=== PATIENT | male | born 1990 | race Caucasian/White ===

== ENCOUNTER 2024-05-21 04:25 | Emergency (ER) | payer OTHER ==
[~2024-05-21] VITALS: Ht 175.3 cm; Wt 85.0 kg
[2024-05-21 04:32] VITALS: TEMP 37; O2SAT 97
[2024-05-21] MEDS: SODIUM CHLORIDE 0.9% 1,000 ML IV ONE (05:11)
[2024-05-21 05:16] LABS: HEMOGLOBIN. 14.5 g/dL (14.0-18.0); MEAN CORPUSCULAR HEMOGLOBIN 32.4 pg (28.0-32.0); MEAN CORPUSCULAR HGB CONC 33.7 g/dL (31.0-37.0); MEAN PLATELET VOLUME 7.1 fl (7.4-10.4); PLATELET 194 x1000/uL (130-400); RED BLOOD CELL COUNT 4.48 mill/uL (4.7-6.1); RED CELL DISTRIBUTION WIDTH 12.6 % (11.6-14.6); WHITE BLOOD COUNT 9.9 x1000/uL (4.5-11.0)
[2024-05-21 05:28] LABS: CHLORIDE 104 mEq/L (98-107); POTASSIUM 4.3 mEq/L (3.5-5.1); SODIUM 139 mEq/L (136-145)
[2024-05-21 05:29] LABS: CALCIUM 9.2 mg/dL (8.7-10.4); CARBON DIOXIDE 25 mEq/L (21-32)
[2024-05-21 05:34] LABS: CREATININE 1.1 mg/dL (0.6-1.3); GLUCOSE 126 mg/dL (70-105); UREA NITROGEN BLOOD 18 mg/dL (9-23)
[2024-05-21 05:35] LABS: ETHANOL BLOOD 93 mg/dL (<10)
[2024-05-21 06:15] LABS: DIFFERENTIAL COMMENT 1
[2024-05-21 06:38] LABS: *AMPHETAMINES SCREEN URINE NEGATIVE (NEGATIVE); *BARBITURATES SCREEN URINE NEGATIVE (NEGATIVE); *BENZODIAZEPINES SCREEN URINE NEGATIVE (NEGATIVE); *COCAINE SCREEN URINE PRESUMPTIVE POSITIVE (NEGATIVE); CANNABINOID URINE SCREEN PRESUMPTIVE POSITIVE (NEGATIVE); ECSTASY MDMA SCREEN URINE NEGATIVE (NEGATIVE); METHADONE URINE SCREEN NEGATIVE (NEGATIVE); OPIATES URINE SCREEN NEGATIVE (NEGATIVE); PHENCYCLIDINE URINE SCREEN NEGATIVE (NEGATIVE)
[2024-05-21 06:56] VITALS: BP 106/48; PULSE 95; RESP 18; O2SAT 96
[2024-05-21 07:22] LABS: PLATELET ESTIMATE NORMAL
== END 2024-05-21 07:28 | disposition home or self-care (01) ==
LOC: EDBD 04:34 → ER 04:34
DX: F10.129 Alcohol abuse with intoxication, unspecified (principal); F12.10 Cannabis abuse, uncomplicated; F14.10 Cocaine abuse, uncomplicated; Y90.4 Blood alcohol level of 80-99 mg/100 ml
CPT/HCPCS: 80305; 80048; 80320; 85025; 36415; 96360; 99283; J7030; G0480